=== PATIENT | male | born 1995 | race Hispanic/Latino ===

== ENCOUNTER 2021-11-25 18:26 | Emergency (ER) | payer OTHER, SELFPAY ==
[2021-11-25] MEDS ORDERED: Acetaminophen 500 MG TAB ONE (19:35)
[2021-11-25] MEDS ORDERED: Ibuprofen 800 MG TAB ONE (19:35)
[2021-11-25] MEDS ORDERED: Boostrix 0.5 ML (Tdap) VIAL ONE (19:35)
[2021-11-25] MEDS ORDERED: Bacitracin 1 PK ONE ×2 (20:35→20:44)
== END 2021-11-25 20:49 | disposition home or self-care (01) ==
LOC: ERS 18:26
DX: S62.613A Displaced fracture of proximal phalanx of left middle finger, initial encounter for closed fracture (principal); S80.812A Abrasion, left lower leg, initial encounter; F17.220 Nicotine dependence, chewing tobacco, uncomplicated; V43.52XA Car driver injured in collision with other type car in traffic accident, initial encounter
CPT/HCPCS: 90471; 90715